=== PATIENT | male | born 1975 | race Caucasian/White ===

== ENCOUNTER 2016-06-29 17:32 | Emergency (ER) | payer BC ==
[2016-06-29 17:38] VITALS: TEMP 98.1
[2016-06-29] MEDS ORDERED: ASPIRIN 81 MG CHEWABLE TAB ONE (17:40)
--- NOTE | 2016-06-29 17:47 | CPEKG ---
Heart Rate: 70 RR Interval: 857 P-R Interval: 164 QRSD Interval: 100 QT Interval: 424 QTC Interval: 458 P [place]: 37 QRS [place]: 74 T Wave [place]: 24 EKG Severity - NORMAL ECG - EKG Impression: SINUS RHYTHM Electronically Signed By: Kendall Alcantara 29-Jun-2016 21:06:27
[2016-06-29] MEDS ORDERED: ASPIRIN 325 MG TAB PO ONE (17:49)
[2016-06-29 18:15] LABS: % IMMATURE GRANULYOCYTES 0.3 % (0.0-1.1); ABSOLUTE IMMATURE GRANULOCYTES 0.03 10^3/uL (0.00-0.10); ADD DIFF? NO; ADD MORPH? NO; ADD SCAN? NO; ATYPICAL LYMPHOCYTE FLAG 10 (0-99); FRAGMENT RBC FLAG 0 (0-99); HEMATOCRIT 45.9 % (40.0-51.0); LEFT SHIFT FLG 0 (0-99); LIPEMIA HEMOLYSIS FLAG 90 (0-99); MEAN CELL HEMOGLOBIN 32.6 pg (27.9-34.1); MEAN CELL VOLUME 88.1 fL (81.5-99.8); MEAN PLATELET VOLUME 10.8 fL (8.7-11.7); PLATELET CLUMPS FLAG 0 (0-99); PLATELET COUNT 255 10^3/uL (150-400); RED BLOOD CELL COUNT 5.21 10^6/uL (4.40-6.38); RED CELL DISTRIBUTION WIDTH 11.2 % (11.5-15.2)
[2016-06-29 18:31] LABS: ANION GAP 16 mEq/L (8-16); CALCIUM 9.7 mg/dL (8.5-10.4); CARBON DIOXIDE 23 mEq/l (22-31); CHLORIDE 101 mEq/L (97-110); GLOMERULAR FILTRATION RATE > 60; GLUCOSE 103 mg/dL (70-100); POTASSIUM 3.4 mEq/L (3.5-5.2); SODIUM 140 mEq/L (134-144)
[2016-06-29] MEDS ORDERED: NS 500 ML IV ONE (18:33)
[2016-06-29] MEDS ORDERED: FAMOTIDINE 20 MG/NACL 50 ML IV ONE (18:33)
[2016-06-29] MEDS ORDERED: LORazepam 2 MG/ML INJ IVP ONE (18:34)
[2016-06-29] MEDS ORDERED: MAALOX/LIDO/HYOSC GI COCKTAIL 55 ML BOTTLE PO ONE (18:39)
--- NOTE | 2016-06-29 18:39 | EDPHY ---
H & P Time Seen by Provider: 06/29/16 17:46 HPI/ROS: HPI Shaking, lightheaded, upper abdominal discomfort. 40-year-old male by private vehicle with family. Patient reports he was on a very stressful phone call at work at 5:00 p.m.. He reports during this phone call he started feeling very stressed and started shaking and feeling weak/ lightheaded and then developed epigastric discomfort and a sensation of fullness in his throat. He reports that he when out in the hallway and talked to his work colleague about the symptoms. He was then brought to the emergency department by his colleague from working with family. He is feeling better now. He denies any chest pain specifically. No shortness of breath. ROS: Constitutional: No fever, no chills. As above. Eyes: No discharge. No changes in vision. ENT: No sore throat. No nasal congestion or rhinorrhea. Respiratory: No cough. No shortness of breath. Cardiac: No chest pain, no palpitations. Gastrointestinal: As above, no vomiting, no diarrhea. Genitourinary: No hematuria. No dysuria or increased frequency with urination. Musculoskeletal: No back pain. No neck pain. No myalgias or arthralgias. Skin: No rashes. Neurological: No headache. No focal weakness or altered sensation. Past medical history: He denies any significant past medical history. No cardiac risk factors. Social history: Nonsmoker. Social alcohol. Here with family. Physical Exam: General Appearance: Alert, no distress. He appears relaxed and comfortable at this time. This patient is responding to questions appropriately and in full sentences. This patient appears well-hydrated and well-nourished. Eyes: Pupils equal and round no pallor or injection. No lid edema, erythema or injection. Respiratory: There are no retractions, lungs are clear to auscultation with good air movement bilaterally. Cardiovascular: Regular rate and rhythm. No murmur. Gastrointestinal: Abdomen is soft and nontender, no masses, bowel sounds normal. No focal tenderness at McBurney's point. No Brand sign. Neurological: Motor sensory function is grossly intact. Cranial nerves are normal. Gait is normal. Skin: Warm and dry, no rashes. Musculoskeletal: Neck is supple and nontender. Extremities are symmetrical. All joints range without pain or impingement. Psychiatric: No agitation. No depression. Database: EKG: EKG time is 5:46 p.m.; EKG shows a narrow complex normal sinus rhythm with a ventricular rate of 70. The NH, QRS, QT intervals are within normal limits. There are no ST-T wave changes indicative of ischemic or injury pattern. No evidence of right heart strain. Interpreted by me. Imaging: Right upper quadrant ultrasound: Negative study. The pancreas is partially visualized and is normal. Results were discussed with staff radiologist Dr. Elías Lucas. Chest x-ray AP portable; the cardiac mediastinal silhouette is unremarkable. No evidence of infiltrate or pneumothorax. No acute cardiopulmonary disease process noted. Interpreted by me. Procedures: Emergency department course: IV placed. He was placed on a media monitor. EKG was performed. He was started on IV normal saline with 500 cc to be given over the next hour. He will be given 20 mg of IV Pepcid, GI cocktail and 0.5 mg of IV Ativan. His presentation is not consistent with acute coronary syndrome, pulmonary embolism , aortic dissection unlikely. 8:00 p.m., patient re-evaluated. Resting comfortably at this time. No shortness of breath. No chest pain. Results of all diagnostic studies discussed with him and his friend. I discussed doing a 6 hour troponin which would be at 11:00 p.m.. The reasoning for doing this study was discussed. I also explained that his presentation was not consistent with acute coronary syndrome and his initial workup and evaluation is reassuring. 8:45 p.m., patient re-evaluated. He is resting comfortably at this time. He wants to stay for a repeat troponin at 11:00 p.m. which will be a 6 hour troponin. He denies any chest pain or shortness of breath at this time. His care will be turned over to Dr. Darby Hendrickson at 9:00 p.m.. Plan will be to discharge with Cardiology follow-up at the [facility] for provocative testing within 3 days assuming 6 hour troponin is negative and patient remains pain free. Differential Diagnosis: The differential diagnosis on this patient includes but is not limited to stress reaction, anxiety reaction, panic attack. Acute coronary syndrome, pulmonary embolism, aortic dissection unlikely. This represents a partial list of diagnoses considered. These considerations are based on history, physical exam, past history, reassessment and diagnostic testing. Smoking Status: Never smoked Constitutional: Initial Vital Signs Temperature (C) 36.7 C 06/29/16 17:36 Heart Rate 83 06/29/16 17:36 Respiratory Rate 18 06/29/16 17:36 Blood Pressure 138/90 H 06/29/16 17:36 O2 Sat (%) 100 06/29/16 17:36 O2 Delivery Mode Room Air Allergies/Adverse Reactions: No Known Allergies Allergy (Unverified 06/29/16 18:05) Home Medications: Medication Instructions Recorded NK [No Known Home Meds] 06/29/16 Medical Decision Making - Data Points Laboratory Results: Laboratory Results 06/29/16 17:45 06/29/16 17:45 06/29/16 17:45 WBC 10.86 H 10^3/uL (3.80-9.50) RBC 5.21 10^6/uL (4.40-6.38) Hgb 17.0 g/dL (13.7-17.5) Hct 45.9 % (40.0-51.0) MCV 88.1 fL (81.5-99.8) MCH 32.6 pg (27.9-34.1) MCHC 37.0 H g/dL (32.4-36.7) RDW 11.2 L % (11.5-15.2) Plt Count 255 10^3/uL (150-400) MPV 10.8 fL (8.7-11.7) Neut % (Auto) 49.4 % (39.3-74.2) Lymph % (Auto) 37.6 % (15.0-45.0) [place] % (Auto) 7.6 % (4.5-13.0) Eos % (Auto) 4.3 % (0.6-7.6) Baso % (Auto) 0.8 % (0.3-1.7) Nucleat RBC Rel Count 0.0 % (0.0-0.2) Absolute Neuts (auto) 5.36 10^3/uL (1.70-6.50) Absolute Lymphs (auto) 4.08 H 10^3/uL (1.00-3.00) Absolute Monos (auto) 0.83 H 10^3/uL (0.30-0.80) Absolute Eos (auto) 0.47 H 10^3/uL (0.03-0.40) Absolute Basos (auto) 0.09 10^3/uL (0.02-0.10) Absolute Nucleated RBC 0.00 10^3/uL (0-0.01) Immature Gran % 0.3 % (0.0-1.1) Immature Gran # 0.03 10^3/uL (0.00-0.10) Sodium 140 mEq/L (134-144) Potassium 3.4 L mEq/L (3.5-5.2) Chloride 101 mEq/L (97-110) Carbon Dioxide 23 mEq/l (22-31) Anion Gap 16 mEq/L (8-16) BUN 13 mg/dL (7-23) Creatinine 1.0 mg/dL (0.7-1.3) Estimated GFR > 60 Glucose 103 H mg/dL (70-100) Calcium 9.7 mg/dL (8.5-10.4) Total Bilirubin 0.8 mg/dL (0.1-1.4) Conjugated Bilirubin 0.7 H mg/dL (0.0-0.5) Unconjugated Bilirubin 0.1 mg/dL (0.0-1.1) AST 29 IU/L (17-59) ALT 45 IU/L (21-72) Alkaline Phosphatase 80 IU/L (38-126) Troponin I < 0.012 ng/mL (0-0.034) Total Protein 8.1 g/dL (6.3-8.2) Albumin 4.9 g/dL (3.5-5.0) Lipase 404.0 H IU/L (23-300) Medications Given: Discontinued Medications Aspirin (Aspirin) 325 mg PO EDNOW ONE Stop: 06/29/16 17:50 Last Admin: 06/29/16 17:50 Dose: 325 mg Sodium Chloride (Ns) 500 mls @ 0 mls/hr IV ONCE ONE PRN Reason: As Directed Stop: 06/29/16 18:34 Last Admin: 06/29/16 18:45 Dose: 500 mls Famotidine/Sodium Chloride (Pepcid 20 Mg (Premix)) 50 mls @ 200 mls/hr IV EDNOW ONE Stop: 06/29/16 18:47 Last Admin: 06/29/16 18:47 Dose: 50 mls Lorazepam (Ativan Injection) 0.5 mg IVP EDNOW ONE Stop: 06/29/16 18:35 Last Admin: 06/29/16 18:45 Dose: 0.5 mg Miscellaneous Medication (Gi Cocktail) 55 ml PO EDNOW ONE Stop: 06/29/16 18:40 Last Admin: 06/29/16 18:50 Dose: 55 ml Departure - Departure Disposition: Home, Routine, Self-Care Clinical Impression: Anxiety reaction, Chest discomfort Condition: Good Instructions: Noncardiac Chest Pain (ED), Anxiety (ED) Additional Instructions: Read and follow provided instructions. Follow-up with remedial project manager, Dr. Rigo Martinez or Zachary Alvarez at the [facility] for stress test as discussed within the next 3 days. Call tomorrow morning for appointment time. You should have your liver function tests and lipase repeated by your primary care physician Dr. Quintero in a week to 10 days. Return to the emergency department for chest pain, shortness of breath or other serious concerns. Referrals: Kinsey Quintero MD [Primary Care Provider] - As per Instructions Paulo Martinez MD [Medical Doctor] - As per Instructions
[2016-06-29 18:42] LABS: TROPONIN I < 0.012 ng/mL (0-0.034)
[2016-06-29 18:53] LABS: ALBUMIN 4.9 g/dL (3.5-5.0); BILIRUBIN,TOTAL 0.8 mg/dL (0.1-1.4); BILIRUBIN-CONJUGATED 0.7 mg/dL (0.0-0.5); BILIRUBIN-UNCONJUGATED 0.1 mg/dL (0.0-1.1); TOTAL PROTEIN 8.1 g/dL (6.3-8.2)
--- NOTE | 2016-06-29 19:32 | DX ---
Portable Chest, Single View 18:53 Hours Indication: Chest pain. Dizziness. Comparison: None Findings: The lungs are well aerated and clear. No pneumothorax, edema, consolidation or effusion. Th e heart size is normal. The upper thoracic spine has minimal dextrocurvature. Impression: Clear lungs. No acute process.
--- NOTE | 2016-06-29 19:52 | US ---
Right Upper Quadrant Sonogram Indication: Right upper quadrant pain. Findings: The borderline enlarged liver, measuring 17.5 cm in the midaxillary line, has normal echog enicity and echotexture. No sonographic mass or biliary dilation. The gallbladder is normal. No intraluminal stones, sludge, wall thickening, or sonographic Brand si gn. Common bile duct is normal caliber (3 mm). Portal vein is patent. The abdominal aorta is normal caliber. The right kidney is unremarkable. No hydronephrosis. The right kidney measures 10.3 cm in length x 5.2 x 4 cm axially. No free fluid. The imaged portions of the pancreatic neck, head, and central body are normal. The p ancreatic tail is obscured by bowel gas. Impression: Normal. No cholelithiasis, biliary dilation, hydronephrosis, or free fluid. Comment: Results were discussed with Dr. Kendall Alcantara at 7:45 p.m. on June 29, 2016.
[2016-06-29 22:17] VITALS: RESP 16
[2016-06-30 00:10] VITALS: BP 125/87; PULSE 60; O2SAT 97
== END 2016-06-30 00:11 | disposition home or self-care (01) ==
DX: R07.89 Other chest pain (principal); F41.1 Generalized anxiety disorder
CPT/HCPCS: 96365